=== PATIENT | female | born 1995 | race African-American/Black ===

== ENCOUNTER 2019-12-02 00:22 | Emergency (ER) | payer SELFPAY ==
[~2019-12-02] VITALS: Ht 165.1 cm; Wt 61.4 kg
[2019-12-02 00:23] VITALS: BP 124/73; Ht 165.1 cm; Wt 61.4 kg
== END 2019-12-02 02:00 | disposition home or self-care (01) ==
LOC: D.ER 00:22
DX: J39.2 Other diseases of pharynx (principal); R07.0 Pain in throat; Z72.0 Tobacco use; R09.89 Other specified symptoms and signs involving the circulatory and respiratory systems